=== PATIENT | male | born 1985 | race Caucasian/White ===

== ENCOUNTER 2021-09-29 14:10 | Emergency (ER) | payer MEDICAID, OTHER ==
[~2021-09-29] VITALS: Ht 180.3 cm; Wt 79.4 kg
[2021-09-29 14:14] VITALS: BP 124/88
== END 2021-09-29 17:26 | disposition left against medical advice (07) ==
LOC: ER 14:10
DX: R10.13 Epigastric pain (principal); Z53.21 Procedure and treatment not carried out due to patient leaving prior to being seen by health care provider